=== PATIENT | female | born 1980 | race Caucasian/White ===

== ENCOUNTER 2017-03-21 12:51 | Emergency (ER) | payer MEDICAID, OTHER ==
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
== END 2017-03-21 13:35 | disposition home or self-care (01) ==
LOC: FB.ED 12:51
DX: S02.5XXA Fracture of tooth (traumatic), initial encounter for closed fracture (principal); K05.10 Chronic gingivitis, plaque induced; I10 Essential (primary) hypertension; F17.210 Nicotine dependence, cigarettes, uncomplicated; W51.XXXA Accidental striking against or bumped into by another person, initial encounter; Z91.040 Latex allergy status
CPT/HCPCS: 99282; 99283